=== PATIENT | male | born 1950 | race Caucasian/White ===

== ENCOUNTER 2017-06-18 14:56 | Observation (INO) | payer BC ==
--- NOTE | 2017-06-18 15:41 | EDM.PDOC ---
ED HPI GENERAL MEDICAL PROBLEM - General Chief Complaint: Chest Pain Stated Complaint: CHEST PAIN Time Seen by Provider: 06/18/17 15:35 Source of Information: Reports: Patient, Family () History Limitations: Reports: No Limitations - History of Present Illness INITIAL COMMENTS - FREE TEXT/NARRATIVE: PATIENT IS A 67-YEAR-OLD GENTLEMAN WHO PRESENTS TO EMERGENCY DEPARTMENT THIS AFTERNOON WITH A COMPLAINT OF PALPITATION AND CHEST PAIN. HIS STATES THAT HE DRANK A LARGE GLASS OF ICE COLD MILK AND IMMEDIATELY AFTER FELT HIS HEART RACING. HE DECIDED TO TAKE A SHOWER AND DISCOMFORT CONTINUED. PATIENT DECIDED TO PROCEED TO THE EMERGENCY DEPARTMENT DURING TRIP TO EMERGENCY DEPARTMENT. SYMPTOMS SUBSIDED AND PATIENT PRESENTED TO THE EMERGENCY DEPARTMENT ASYMPTOMATIC. PATIENT DENIES SHORTNESS OF BREATH, TRAUMA, FALL, NAUSEA, VOMITING, DIARRHEA, FEVER, OUT OF COUNTRY TRAVEL, HEADACHE, OR DIZZINESS. Onset: Today Onset Date: 06/18/17 Onset Time: 13:30 Location: Reports: Chest Quality: Reports: Burning Severity: Mild Improves with: Reports: Other (SPONTANEOUSLY) Context: Reports: Other (WHILE SEATED AT REST) Associated Symptoms: Reports: No Other Symptoms - Related Data Allergies Allergy/AdvReac Type Severity Reaction Status Date / Time No Known Drug Allergies Allergy NKDA Verified 06/18/17 15:03 Home Meds: Home Meds Aspirin/Calcium Carbonate/Mag [Aspirin Buffered 325 mg Tab] 650 mg PO DAILY [History] Bariatric Advantage Advanced Multi Ea Multivitamin 2 tab PO DAILY 11/13/15 [ History] Fish Oil/[place]-3 Fatty Acids [Fish Oil] 1 each PO DAILY 11/13/15 [History] Lisinopril/Hydrochlorothiazide [Lisinopril-Hctz 10-12.5 mg Tab] 1 each PO BID [History] Omeprazole [Prilosec] 20 mg PO DAILY 11/13/15 [History] Past Medical History - Infectious Disease History Infectious Disease History: Reports: Chicken Pox Social & Family History - Tobacco Use Smoking Status *Q: Never Smoker ED ROS GENERAL - Review of Systems Review Of Systems: ROS reveals no pertinent complaints other than HPI. Constitutional: Reports: No Symptoms HEENT: Reports: No Symptoms Respiratory: Reports: No Symptoms Cardiovascular: Reports: Chest Pain, Palpitations Endocrine: Reports: No Symptoms GI/Abdominal: Reports: No Symptoms : Reports: No Symptoms Musculoskeletal: Reports: No Symptoms Skin: Reports: No Symptoms Neurological: Reports: No Symptoms Psychiatric: Reports: No Symptoms Hematologic/Lymphatic: Reports: No Symptoms Immunologic: Reports: No Symptoms ED EXAM, GENERAL - Physical Exam Exam: See Below Exam Limited By: No Limitations General Appearance: Alert, WD/WN, No Apparent Distress Eye Exam: Bilateral Eye: Normal Inspection Nose: Normal Inspection, Normal Mucosa, No Blood Throat/Mouth: Normal Inspection, Normal Oropharynx, No Airway Compromise Head: Atraumatic, Normocephalic Neck: Normal Inspection Respiratory/Chest: No Respiratory Distress, Lungs Clear, Normal Breath Sounds, No Accessory Muscle Use, Chest Non-Tender Cardiovascular: Regular Rate, Rhythm, No Murmur GI/Abdominal: Normal Bowel Sounds, Soft, Non-Tender, No Organomegaly, No Distention, No Abnormal Bruit, No Mass Back Exam: Normal Inspection, Full Range of Motion Extremities: Normal Inspection, No Pedal Edema Neurological: Alert, Oriented, Normal Cognition Psychiatric: Normal Affect, Normal Mood Skin Exam: Warm, Dry, Intact, Normal Color, No Rash EKG INTERPRETATION EKG Date: 06/18/17 Time: 15:20 Rhythm: NSR Rate (Beats/Min): 81 [place]: Normal P-Wave: Present QRS: Normal ST-T: Normal QT: Normal Comparison: NA - No Prior EKG Course - Orders/Labs/Meds Orders: Active Orders 24 hr Category Date Time Status EKG Documentation Completion [RC] ASDIRECTED Care 06/18/17 15:09 Active CXR [Chest 1V Frontal] [CR] Stat Exams 06/18/17 15:09 Stop Req CXR [Chest 2V] [CR] Stat Exams 06/18/17 15:11 Ordered CMP [COMPREHENSIVE METABOLIC PN,CMP] [CHEM] Stat Lab 06/18/17 15:20 Received LIPASE [CHEM] Stat Lab 06/18/17 15:20 Received TROPONIN I [CHEM] Stat Lab 06/18/17 15:20 Received EKG 12 Lead [EK] Routine Ther 06/18/17 15:08 Ordered Labs: Laboratory Tests 06/18/17 Range/Units 15:20 WBC 10.0 (5.0-10.0) 10^3/uL RBC 5.54 (4.50-6.00) 10^6/uL Hgb 18.0 H (13.0-17.0) g/dL Hct 53.8 H (40.0-52.0) % MCV 97.3 H (82.0-92.0) fL MCH 32.5 H (27.0-31.0) pg MCHC 33.4 (32.0-36.0) g/dL RDW 13.2 (11.5-14.5) % Plt Count 275 (150-300) 10^3/uL MPV 7.4 (7.4-10.4) fL Neut % (Auto) 70.8 H (50.0-70.0) % Lymph % (Auto) 17.3 L (20.0-40.0) % [place] % (Auto) 8.7 H (2.0-8.0) % Eos % (Auto) 2.3 (1.0-3.0) % Baso % (Auto) 0.9 (0.0-1.0) % Neut # (Auto) 7.1 H (2.5-7.0) 10^3/uL Lymph # (Auto) 1.7 (1.0-4.0) 10^3/uL [place] # (Auto) 0.9 H (0.1-0.8) 10^3/uL Eos # (Auto) 0.2 (0.1-0.3) 10^3/uL Baso # (Auto) 0.1 (0.0-0.1) 10^3/uL - Radiology Interpretation Free Text/Narrative:: Chest x-ray shows no acute process. - Re-Assessments/Exams Free Text/Narrative Re-Assessment/Exam: 06/18/17 16:34 PATIENT AFEBRILE, NONTOXIC APPEARING, VITAL SIGNS STABLE, RESTING COMFORTABLY. CASE DISCUSSED WITH DR. ELIEZER DUMONT AND PATIENT WILL BE ADMITTED TO OBSERVATION. Departure - Departure Time of Disposition: 16:29 Disposition: Refer to Observation Condition: Fair Clinical Impression: Atypical chest pain, Troponin level elevated Referrals: Shira Ignacio PA-C [Primary Care Provider] - Forms: ED Department Discharge - My Orders Last 24 Hours: My Active Orders 06/18/17 15:08 EKG 12 Lead [EK] Routine 06/18/17 15:09 EKG Documentation Completion [RC] ASDIRECTED CXR [Chest 1V Frontal] [CR] Stat 06/18/17 15:11 CXR [Chest 2V] [CR] Stat 06/18/17 15:20 CMP [COMPREHENSIVE METABOLIC PN,CMP] [CHEM] Stat LIPASE [CHEM] Stat TROPONIN I [CHEM] Stat - Assessment/Plan Last 24 Hours: My Active Orders 06/18/17 15:08 EKG 12 Lead [EK] Routine 06/18/17 15:09 EKG Documentation Completion [RC] ASDIRECTED CXR [Chest 1V Frontal] [CR] Stat 06/18/17 15:11 CXR [Chest 2V] [CR] Stat 06/18/17 15:20 CMP [COMPREHENSIVE METABOLIC PN,CMP] [CHEM] Stat LIPASE [CHEM] Stat TROPONIN I [CHEM] Stat Assessment:: ATYPICAL CHEST PAIN, ELEVATED TROPONIN. Plan: ADMISSION FOR OBSERVATION.
[2017-06-18 16:01] LABS: CHLORIDE,CL 101 mmol/L (98-115); SODIUM,NA 138 mmol/L (136-145)
[2017-06-18] MEDS ORDERED: Sodium Chloride 0.9% 1,000 ML IV ONE (16:19)
[2017-06-18] MEDS ORDERED: Sodium Chloride 0.9% 1,000 ML ONE (16:20)
[2017-06-18] MEDS ORDERED: EPINEPHrine 1:10,000 1 MG/10 ML Syringe IVPUSH PRN (19:26)
[2017-06-18] MEDS ORDERED: Nitroglycerin 0.4 MG Tab.SL SL PRN (19:26)
[2017-06-18] MEDS ORDERED: Atropine 0.1 MG/ML 10 ML Syringe IVPUSH PRN (19:26)
[2017-06-18] MEDS ORDERED: Lidocaine 2% 100 MG/5 ML Syringe IVPUSH PRN (19:26)
[2017-06-18] MEDS ORDERED: Lisinopril 10 MG Tab PO SCH (21:00)
[2017-06-18] MEDS ORDERED: Hydrochlorothiazide 12.5 MG Cap PO SCH (21:00)
[2017-06-18] MEDS ORDERED: Heparin Sodium 5,000 Units/ML Vial IVPUSH ONE (22:13)
[2017-06-18] MEDS ORDERED: Heparin Sodium/D5W 25,000 UNITS/250 ML BAG IV SCH (22:15)
[2017-06-18 22:19] VITALS: BP 134/77
--- NOTE | 2017-06-18 22:51 | PCM.HP ---
H&P History of Present Illness - General Date of Service: 06/18/17 Admit Problem/Dx: Elevated troponin, atypical chest pain Source of Information: Patient, Old Records, Provider (Holden Ayon, ED provider) History Limitations: Reports: No Limitations - History of Present Illness Initial Comments - Free Text/Narative: Mr. Pineda reports taht around noon today, had an abnormal feeling in the center of his chest and "funny" heart feeling. He drank a large glass of cold milk and took a shower. He also took an additional 650mg of aspirin, in addition to the 650mg he has been taking daily at baseline because "aspirin is good for my heart." After telling his about his symptoms, he came into the [facility] ED for further evaluation. He states that he wasn't exerting himself at the time of the chest pain. He did feel mildly sweaty and had some difficulty breathing, but otherwise had no other associated symptoms. They resolved by the time he got to the ED. Evaluation there showed an elevated troponin at 0.09, but otherwise unremarkable work-up, including EKG and CXR. He denies prior similar episodes or exertional chest pain in the past. Denies any prior cardiac work-up. Of note, in the ED he had a brief vasovagal episode with insertion of the IV, which his and he state has happened in the past with lab draws and needles. Mid-Sternal Chest Pain Score (Numeric/FACES): 0 - Related Data Allergies/Adverse Reactions: Allergies Allergy/AdvReac Type Severity Reaction Status Date / Time No Known Drug Allergies Allergy NKDA Verified 06/18/17 17:06 Home Medications: Home Meds Aspirin/Calcium Carbonate/Mag [Aspirin Buffered 325 mg Tab] 650 mg PO DAILY [History] Bariatric Advantage Advanced Multi Ea Multivitamin 2 tab PO DAILY 11/13/15 [ History] Fish Oil/[place]-3 Fatty Acids [Fish Oil] 1 each PO DAILY 11/13/15 [History] Lisinopril/Hydrochlorothiazide [Lisinopril-Hctz 10-12.5 mg Tab] 1 each PO BID [History] Omeprazole [Prilosec] 20 mg PO DAILY 11/13/15 [History] Past Medical History HEENT History: Reports: Hard of Hearing Cardiovascular History: Reports: High Cholesterol (intolerant of statins), Hypertension Gastrointestinal History: Reports: GERD Genitourinary History: Reports: Renal Calculus Musculoskeletal History: Reports: Arthritis, Other (See Below) Other Musculoskeletal History: involuntary muscle movement, like a twitch, has had for years - Infectious Disease History Infectious Disease History: Reports: Chicken Pox - Past Surgical History HEENT Surgical History: Reports: None Cardiovascular Surgical History: Reports: None GI Surgical History: Reports: Colonoscopy Male Surgical History: Reports: None Musculoskeletal Surgical History: Reports: Other (See Below) Other Musculoskeletal Surgeries/Procedures:: Knee scope Social & Family History - Family History Family Medical History: Noncontributory Cardiac: Reports: Heart Failure - Tobacco Use Smoking Status *Q: Never Smoker Second Hand Smoke Exposure: No - Caffeine Use Caffeine Use: Reports: None - Recreational Drug Use Recreational Drug Use: No H&P Review of Systems - Review of Systems: Review Of Systems: See Below General: Denies: Fever, Chills, Fatigue, Diaphoresis HEENT: Denies: Dysphasia, Headaches, Sinus Congestion Pulmonary: Denies: Shortness of Breath, Wheezing, Pleuritic Chest Pain Cardiovascular: Denies: Chest Pain, Palpitations, Dyspnea on Exertion, Orthopnea , Edema Gastrointestinal: Denies: Abdominal Pain, Difficulty Swallowing, Nausea Musculoskeletal: Denies: Neck Pain, Shoulder Pain, Arm Pain Skin: Denies: Cyanosis, Rash, Wound Psychiatric: Denies: Confusion, Depression, Anxiety Neurological: Denies: Confusion, Dizziness, Headache, Numbness, Paresthesia Hematologic/Lymphatic: Denies: Anemia Exam - Exam Exam: See Below - Vital Signs Vital Signs: Last Vital Signs Temp 36.4 C 06/18/17 22:18 Pulse 65 06/18/17 22:18 Resp 20 06/18/17 22:18 BP 134/77 06/18/17 22:18 Pulse Ox 94 L 06/18/17 22:18 Weight: 88.677 kg - Exam Physical Exam Comments:: GENERAL: Elderly white male lying in hospital bed in no acute distress. HEENT: Normocephalic, atraumatic. Facial tic. Conjunctiva clear. Nares patent without discharge. Mucous membranes moist. NECK: Supple, no masses. CV: Regular rate and rhythm, no murmurs, rubs, or gallops. 2+ radial pulses. PULMONARY: Normal effort, clear to auscultation bilaterally, no wheezes, rales, or rhonchi. ABDOMEN: Positive bowel sounds, soft, nontender, nondistended. EXTREMITIES: No edema, cyanosis, or clubbing. MUSCULOSKELETAL: Moves all extremities well. NEUROLOGICAL: No obvious deficits. DERMATOLOGIC: No rashes or suspicious lesions in exposed areas. PSYCHIATRIC: Alert, interactive, appropriate affect. - Patient Data Lab Results Last 24 hrs: Laboratory Results - last 24 hr 06/18/17 Range/Units 21:00 Troponin I 0.13 H* (0.00-0.070) ng/mL Result Diagrams: 06/18/17 15:20 06/18/17 15:20 EKG INTERPRETATION Rhythm: NSR Rate (Beats/Min): 81 [place]: Normal P-Wave: Present QRS: Normal ST-T: Normal QT: Normal AL/PQ Interval: normal Comparison: NA - No Prior EKG *Q Meaningful Use (ADM) - VTE *Q VTE Criteria *Q: - Stroke *Q Stroke Criteria *Q: - AMI *Q AMI Criteria *Q: Problem List Initiated/Reviewed/Updated: Yes Orders Last 24hrs: Active Orders 24 hr Category Date Time Status Cardiac Monitoring [RC] 0700,1100,1500,1900,2300,0300 Care 06/18/17 17:25 Active Intake and Output [RC] 1400,2200,0600 Care 06/18/17 17:25 Active Oxygen Therapy [RC] PRN Care 06/18/17 17:25 Active Pulse Oximetry [RC] .PRN Care 06/18/17 17:25 Active Up With Assistance [RC] ASDIRECTED Care 06/18/17 17:25 Active Vital Signs [RC] 0300,0700,1100,1500,1900,2300 Care 06/18/17 17:25 Active Heart Healthy Diet [DIET] Diet 06/18/17 Dinner Active A1C [GLYCOSYLATED HEMOGLOBIN,HGBA1C] [CHEM] AM Lab 06/19/17 05:11 Ordered BASIC METABOLIC PANEL,BMP [CHEM] AM Lab 06/19/17 05:11 Ordered CBC WITH AUTO DIFF [HEME] AM Lab 06/19/17 05:11 Ordered LIPID PANEL [CHEM] AM Lab 06/19/17 05:11 Ordered MAGNESIUM [CHEM] AM Lab 06/19/17 05:11 Ordered TROPONIN I [CHEM] AM Lab 06/19/17 05:11 Ordered Aspirin [Halfprin] Med 06/19/17 08:00 Active 81 mg PO WITHBREAKFAST Atropine [Atropine 0.1 MG/ML] Med 06/18/17 19:26 Active 0 mg IVPUSH ASDIRECTED PRN EPINEPHrine [EPINEPHrine 1:10,000] Med 06/18/17 19:26 Active 1 mg IVPUSH ASDIRECTED PRN Heparin Sodium/D5W Med 06/18/17 22:15 Active 25,000 units in 250 ml IV TITRATE Hydrochlorothiazide Med 06/18/17 21:00 Active 12.5 mg PO BID Lidocaine 2% [Xylocaine 2%] Med 06/18/17 19:26 Active 0 mg IVPUSH ASDIRECTED PRN Lisinopril [Prinivil] Med 06/18/17 21:00 Active 10 mg PO BID Nitroglycerin [Nitrostat] Med 06/18/17 19:26 Active 0.4 mg SL ASDIRECTED PRN Omeprazole Med 06/19/17 07:30 Active 20 mg PO ACBREAKFAST Medication Orders Aspirin (Halfprin) 81 mg PO WITHBREAKFAST [facility] Atropine Sulfate (Atropine 0.1 Mg/Ml) 0 mg IVPUSH ASDIRECTED PRN PRN Reason: Heart Epinephrine HCl (Epinephrine 1:10,000) 1 mg IVPUSH ASDIRECTED PRN PRN Reason: Heart Hydrochlorothiazide (Hydrochlorothiazide) 12.5 mg PO BID [facility] Last Admin: 06/18/17 20:16 Dose: 12.5 mg Heparin Sodium/Dextrose () 25,000 units in 250 mls @ 10.641 mls/hr IV TITRATE [facility]; 12 UNITS/KG/HR PRN Reason: Protocol Lidocaine HCl (Xylocaine 2%) 0 mg IVPUSH ASDIRECTED PRN PRN Reason: Heart Lisinopril (Prinivil) 10 mg PO BID [facility] Last Admin: 06/18/17 20:16 Dose: 10 mg Nitroglycerin (Nitrostat) 0.4 mg SL ASDIRECTED PRN PRN Reason: Heart Omeprazole (Omeprazole) 20 mg PO ACBREAKFAST [facility] Assessment/Plan Comment:: Mr. Pineda is a 67yoM with a history notable for HTN, HLD, and pre-DMT2, but no personal cardiac history, who complained of an episode of atypical chest pain on 06/18/17 around noon associated with some palpitations. He has been taking ASA 650mg daily and took an additional 650mg, drank a glass of cold milk , and after telling his , they came into the [facility] ED when he complained of no chest pain or abnormal symptoms as they had resolved. Evaluation was notable for a troponin of 0.09 and otherwise unremarkable workup , including overall unremarkable VS, normal EKG, and normal CXR. He is admitted for observation and repeat cardiac enzymes. # Elevated troponin and atypical chest pain: Troponin mildly elevated at 0.09 in the setting of atypical chest pain episode around noon today. No prior cardiac history or work-up, but risk factors of HTN, HLD, pre-DMT2, and obesity. NOREEN score = 4. No other etiology to explain mildly elevated troponin, including any pulmonary symptoms or renal impairment. Monitor VS q4h and on continuous cardiorespiratory monitoring. Trend troponin. EKG and nitro if recurrent chest pain. Will at minimum require outpatient stress test for risk stratification. Add beta flavia and consider statin after further discussion given previous intolerance. Continue ASA 81mg daily. # HTN: Previously well controlled on lisinopril-HCTZ. Monitor closely. # HLD: Previous lipid panel with LDL 180 and cholesterol 250. Previous documentation states he is intolerant of statins. Repeat lipid panel tomorrow. Consider lower dose initiation. 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 Repeat A1c tomorrow. Consider metformin initiation. # Obesity: BMI 31. # Transaminitis, chronic: Previous documentation states it was thought to be due to statins, but continues to be elevated and no prior complete evaluation noted. Pursue as outpatient. Hospitalization details: # FEN: No IVF. Electrolytes normal. Cardiac diet. # Code status: FULL. # Emergency contact: . # Disposition: Admit to observation status. Anticipate discharge home following work-up and management as indicated.
--- NOTE | 2017-06-18 22:58 | PCM.DCSUM1 ---
Discharge Summary - Hospital Course Free Text/Narrative:: Date of admission: 06/18/17 Date of discharge: 06/18/17 Admission diagnoses: 1. Elevated troponin 2. Atypical chest pain 3. HTN 4. HLD 5. Pre-DMT2 6. Transaminitis, chronic Discharge diagnoses: 1. NSTEMI 2. HTN 3. HLD 4. Pre-DMT2 5. Transaminitis, chronic Consultations: Cardiology, [facility] Hospitalist, [facility] course: Mr. Pineda is a 67yoM with a history notable for HTN, HLD, and pre-DMT2, but no personal cardiac history, who complained of an episode of atypical chest pain on 06/18/17 around noon associated with some palpitations. He has been taking ASA 650mg daily and took an additional 650mg, drank a glass of cold milk , and after telling his , they came into the [facility] ED when he complained of no chest pain or abnormal symptoms as they had resolved. Evaluation was notable for a troponin of 0.09 and otherwise unremarkable workup , including overall unremarkable VS, normal EKG, and normal CXR. He was admitted for observation and repeat cardiac enzymes. Repeat troponin was elevated to 0.13. He continued to deny symptoms and was hemodynamically stable with sinus rhythm on cardiac monitoring. I discussed the patient's care with cardiology at [facility] who recommended initiation of heparin drip and transfer for further work-up for NSTEMI, likely to involve cardiac catheterization tomorrow. He was accepted for transfer by Dr. Brooks with the hospitalist team. Discussed with the patient and answered questions prior to transport. - Discharge Data Discharge Date: 06/18/17 Discharge Disposition: DC/Tfer to Acute Hospital 02 Condition: Fair - Patient Instructions Diet: NPO Diet, Other: after midnight - Discharge Plan Home Medications: Home Meds Aspirin/Calcium Carbonate/Mag [Aspirin Buffered 325 mg Tab] 650 mg PO DAILY [History] Bariatric Advantage Advanced Multi Ea Multivitamin 2 tab PO DAILY 11/13/15 [ History] Fish Oil/[place]-3 Fatty Acids [Fish Oil] 1 each PO DAILY 11/13/15 [History] Lisinopril/Hydrochlorothiazide [Lisinopril-Hctz 10-12.5 mg Tab] 1 each PO BID 04 /22/16 [History] Omeprazole [Prilosec] 20 mg PO DAILY 11/13/15 [History] Referrals: Shira Ignacio PA-C [Primary Care Provider] - - Discharge Summary/Plan Comment DC Time >30 min.: Yes - General Info Admission Dx/Problem (Free Text: Mr. Brooks currently states he has no complaints. The episode he experienced earlier of chest pressure and palpitations has not recurred. He denies any chest pain, palpitations, shortness of breath, numbness, tingling, abdominal pain, diaphoresis, or other symptoms. - Patient Data Vitals - Most Recent: Last Vital Signs Temp 36.4 C 06/18/17 22:18 Pulse 65 06/18/17 22:18 Resp 20 06/18/17 22:18 BP 134/77 06/18/17 22:18 Pulse Ox 94 L 06/18/17 22:18 Weight - Most Recent: 88.677 kg I&O - Last 24 hours: Intake & Output 06/18/17 06/18/17 06/18/17 06:59 14:59 22:59 Intake Total 300 Balance 300 Lab Results - Last 24 hrs: Laboratory Results - last 24 hr 06/18/17 Range/Units 21:00 Troponin I 0.13 H* (0.00-0.070) ng/mL Med Orders - Current: Current Medications Aspirin (Halfprin) 81 mg PO WITHBREAKFAST [facility] Atropine Sulfate (Atropine 0.1 Mg/Ml) 0 mg IVPUSH ASDIRECTED PRN PRN Reason: Heart Epinephrine HCl (Epinephrine 1:10,000) 1 mg IVPUSH ASDIRECTED PRN PRN Reason: Heart Hydrochlorothiazide (Hydrochlorothiazide) 12.5 mg PO BID ON LICENSE OF [facility] Last Admin: 06/18/17 20:16 Dose: 12.5 mg Heparin Sodium/Dextrose () 25,000 units in 250 mls @ 10.641 mls/hr IV TITRATE [facility]; 12 UNITS/KG/HR PRN Reason: Protocol Lidocaine HCl (Xylocaine 2%) 0 mg IVPUSH ASDIRECTED PRN PRN Reason: Heart Lisinopril (Prinivil) 10 mg PO BID ON LICENSE OF [facility] Last Admin: 06/18/17 20:16 Dose: 10 mg Nitroglycerin (Nitrostat) 0.4 mg SL ASDIRECTED PRN PRN Reason: Heart Omeprazole (Omeprazole) 20 mg PO ACBREAKFAST [facility] Discontinued Medications Heparin Sodium (Porcine) (Heparin Sodium) 5,000 units IVPUSH .BOLUS ONE PRN Reason: Protocol Stop: 06/18/17 22:14 Sodium Chloride (Normal Saline) 1,000 mls @ 999 mls/hr IV .BOLUS ONE Stop: 06/18/17 17:19 Last Admin: 06/18/17 16:05 Dose: 999 mls/hr Sodium Chloride (Normal Saline) Confirm Administered Dose 1,000 mls @ as directed .ROUTE .STK-MED ONE Stop: 06/18/17 16:21 Last Admin: 06/18/17 16:44 Dose: Not Given - Exam Physical Findings Comments:: GENERAL: Elderly white male lying in hospital bed in no acute distress. HEENT: Normocephalic, atraumatic. Facial tic. Conjunctiva clear. Nares patent without discharge. Mucous membranes moist. NECK: Supple, no masses. CV: Regular rate and rhythm, no murmurs, rubs, or gallops. 2+ radial pulses. PULMONARY: Normal effort, clear to auscultation bilaterally, no wheezes, rales, or rhonchi. ABDOMEN: Positive bowel sounds, soft, nontender, nondistended. EXTREMITIES: No edema, cyanosis, or clubbing. MUSCULOSKELETAL: Moves all extremities well. NEUROLOGICAL: No obvious deficits. DERMATOLOGIC: No rashes or suspicious lesions in exposed areas. PSYCHIATRIC: Alert, interactive, appropriate affect. *Q Meaningful Use (DIS) - VTE *Q VTE Criteria *Q: - Stroke *Q Stroke Criteria *Q: - AMI *Q AMI Criteria *Q:
[2017-06-19] MEDS ORDERED: Omeprazole 20 MG Cap.CR PO SCH (07:30)
[2017-06-19] MEDS ORDERED: Aspirin 81 MG Tab.EC PO SCH (08:00)
== END 2017-06-18 23:30 ==
LOC: KA.ED 14:56 → KA.MS 16:44
PROVIDERS: ADMIT Physician Assistant Surgical; ATTEND Family Medicine
DX: I21.4 Non-ST elevation (NSTEMI) myocardial infarction (principal); I10 Essential (primary) hypertension; E78.5 Hyperlipidemia, unspecified; R73.03 Prediabetes; R74.0 Nonspecific elevation of levels of transaminase and lactic acid dehydrogenase [LDH]; K21.9 Gastro-esophageal reflux disease without esophagitis; M19.90 Unspecified osteoarthritis, unspecified site; Z87.442 Personal history of urinary calculi; E66.9 Obesity, unspecified; Z79.82 Long term (current) use of aspirin; Z79.899 Other long term (current) drug therapy; Z68.31 Body mass index [BMI] 31.0-31.9, adult
CPT/HCPCS: 80053; 83690; 84484; 85025; 93005; 96374; 99285; A9270; G0378; J1644; J7030; 71010

== ENCOUNTER 2017-09-04 22:03 | Observation (INO) | payer BC ==
--- NOTE | 2017-09-04 22:16 | EDM.PDOC ---
ED HPI GENERAL MEDICAL PROBLEM - General Chief Complaint: Chest Pain Stated Complaint: chest pain Time Seen by Provider: 09/04/17 22:03 Source of Information: Reports: Patient History Limitations: Reports: No Limitations - History of Present Illness INITIAL COMMENTS - FREE TEXT/NARRATIVE: 67 YO WM presents to ER complaining of 1 hour history of chest pain with palpitations. Pt reports history of atrial fibrillation 05/2017 with normal diagnostic cardiac cath 05/2017. Pt unsure what medication he was put on after hospitalization. Pt reports symptoms started suddenly tonight with associated shortness of breath and mild dizziness. Onset: Sudden Duration: Hour(s): (1) Location: Reports: Chest Severity: Mild Improves with: Reports: None Worsens with: Reports: None Associated Symptoms: Reports: Chest Pain, Shortness of Breath. Denies: Diaphoresis, Nausea/Vomiting, Syncope - Related Data Allergies Allergy/AdvReac Type Severity Reaction Status Date / Time No Known Drug Allergies Allergy NKDA Verified 09/04/17 22:32 Home Meds: Home Meds Bariatric Advantage Advanced Multi Ea Multivitamin 2 tab PO DAILY 11/13/15 [ History] Fish Oil/[place]-3 Fatty Acids [Fish Oil] 2 each PO BID 11/13/15 [History] Lisinopril/Hydrochlorothiazide [Lisinopril-Hctz 10-12.5 mg Tab] 1 each PO BID [History] Omeprazole [Prilosec] 20 mg PO DAILY 11/13/15 [History] Aspirin [Adult Low Dose Aspirin EC] 81 mg PO DAILY 09/04/17 [History] Metoprolol Tartrate [Metoprolol Tartrate] 12.5 mg PO BID 09/04/17 [History] Nitroglycerin [Nitroglycerin] 1 tab PO Q5M PRN 09/04/17 [History] Rosuvastatin Calcium [Rosuvastatin Calcium] 10 mg PO DAILY 09/04/17 [History] Past Medical History HEENT History: Reports: Hard of Hearing Cardiovascular History: Reports: High Cholesterol (intolerant of statins), Hypertension Gastrointestinal History: Reports: GERD Genitourinary History: Reports: Renal Calculus Musculoskeletal History: Reports: Arthritis, Other (See Below) Other Musculoskeletal History: involuntary muscle movement, like a twitch, has had for years - Infectious Disease History Infectious Disease History: Reports: Chicken Pox - Past Surgical History HEENT Surgical History: Reports: None Cardiovascular Surgical History: Reports: None GI Surgical History: Reports: Colonoscopy Male Surgical History: Reports: None Musculoskeletal Surgical History: Reports: Other (See Below) Other Musculoskeletal Surgeries/Procedures:: Knee scope Social & Family History - Family History Family Medical History: Noncontributory Cardiac: Reports: Heart Failure - Tobacco Use Smoking Status *Q: Never Smoker Second Hand Smoke Exposure: No - Caffeine Use Caffeine Use: Reports: None - Recreational Drug Use Recreational Drug Use: No ED ROS GENERAL - Review of Systems Review Of Systems: See Below Constitutional: Reports: No Symptoms HEENT: Reports: No Symptoms Respiratory: Reports: Shortness of Breath Cardiovascular: Reports: Chest Pain Endocrine: Reports: No Symptoms GI/Abdominal: Reports: No Symptoms : Reports: No Symptoms Musculoskeletal: Reports: No Symptoms Skin: Reports: No Symptoms Neurological: Reports: No Symptoms Psychiatric: Reports: No Symptoms Hematologic/Lymphatic: Reports: No Symptoms Immunologic: Reports: No Symptoms ED EXAM, GENERAL - Physical Exam Exam: See Below Exam Limited By: No Limitations General Appearance: Alert, WD/WN, No Apparent Distress Head: Atraumatic, Normocephalic Neck: Normal Inspection, Supple, Non-Tender, Full Range of Motion Respiratory/Chest: No Respiratory Distress, Lungs Clear, Normal Breath Sounds, No Accessory Muscle Use, Chest Non-Tender Cardiovascular: Normal Peripheral Pulses, No Edema, No Gallop, No JVD, No Murmur , No Rub, Tachycardia, Irregularly Irregular GI/Abdominal: Normal Bowel Sounds, Soft, Non-Tender, No Organomegaly, No Distention, No Abnormal Bruit, No Mass Back Exam: Normal Inspection, Full Range of Motion, NT Extremities: Normal Inspection, Normal Range of Motion, Non-Tender, Normal Capillary Refill, No Pedal Edema Neurological: Alert, Oriented, CN II-XII Intact, Normal Cognition, Normal Gait, Normal Reflexes, No Motor/Sensory Deficits Psychiatric: Normal Affect, Normal Mood Skin Exam: Warm, Dry, Intact, Normal Color, No Rash Lymphatic: No Adenopathy EKG INTERPRETATION EKG Date: 09/04/17 Time: 22:12 Rhythm: A-Fib Rate (Beats/Min): 143 [place]: Normal P-Wave: Absent QRS: Normal ST-T: Normal QT: Normal Comparison: NA - No Prior EKG Course - Vital Signs Last Recorded V/S: Last Vital Signs Temp 36.2 C 09/04/17 23:44 Pulse 61 09/04/17 23:44 Resp 16 09/04/17 23:44 BP 110/69 09/04/17 23:44 Pulse Ox 94 L 09/04/17 23:44 - Orders/Labs/Meds Orders: Active Orders 24 hr Category Date Time Status Patient Status Manage Transfer [TRANSFER] Routine ADT 09/04/17 23:42 Ordered Patient Status [ADT] Routine ADT 09/04/17 23:43 Ordered Bedrest Bathroom Privileges [RC] ASDIRECTED Care 09/04/17 23:43 Active Blood Glucose Check, Bedside [RC] WITHMEALSANDBED Care 09/04/17 23:43 Active Cardiac Monitoring [RC] . DIRECTED Care 09/04/17 22:17 Active Cardiac Monitoring [RC] CONTINUOUS Care 09/04/17 23:44 Active EKG Documentation Completion [RC] ASDIRECTED Care 09/04/17 22:17 Active Oxygen Therapy [RC] PRN Care 09/04/17 23:43 Active Oxygen Therapy, ED [RC] ASDIRECTED Care 09/04/17 22:17 Active Peripheral IV Care [RC] . DIRECTED Care 09/04/17 22:17 Active Peripheral IV Care [RC] . DIRECTED Care 09/04/17 23:45 Active Pulse Oximetry [RC] PRN Care 09/04/17 23:44 Active VTE/DVT Education [RC] PER UNIT ROUTINE Care 09/04/17 23:43 Active Vital Signs [RC] Q4H Care 09/04/17 23:43 Active [employer] Diet [DIET] Diet 09/05/17 Breakfast Active Chest 1V Frontal [CR] Stat Exams 09/04/17 22:17 Taken BASIC METABOLIC PANEL,BMP [CHEM] AM Lab 09/05/17 05:11 Ordered CBC WITH AUTO DIFF [HEME] AM Lab 09/05/17 05:11 Ordered CKMB [CHEM] AM Lab 09/05/17 05:11 Ordered MAGNESIUM [CHEM] AM Lab 09/05/17 05:11 Ordered TROPONIN I [CHEM] AM Lab 09/05/17 05:11 Ordered Nitroglycerin [Nitro-Bid 2%] Med 09/04/17 23:45 Active 1 gm TOP Q6H PRN Sodium Chloride 0.9% [Normal Saline] 1,000 ml Med 09/04/17 23:45 Active IV ASDIRECTED Sodium Chloride 0.9% [Syrex Flush] Med 09/04/17 22:17 Active 5 ml FLUSH Q8HR PRN Sodium Chloride 0.9% [Syrex Flush] Med 09/04/17 23:43 Active 5 ml FLUSH Q8HR PRN Peripheral IV Insertion Adult [OM.PC] Routine Oth 09/04/17 22:17 Ordered Peripheral IV Insertion Adult [OM.PC] Routine Oth 09/04/17 23:43 Ordered Resuscitation Status Routine Resus Stat 09/04/17 23:43 Ordered EKG 12 Lead [EK] Routine Ther 09/04/17 22:17 Ordered Medication Orders Sodium Chloride (Normal Saline) 1,000 mls @ 125 mls/hr IV ASDIRECTED KYM Nitroglycerin (Nitro-Bid 2%) 1 gm TOP Q6H PRN PRN Reason: Chest Pain Sodium Chloride (Syrex Flush) 5 ml FLUSH Q8HR PRN PRN Reason: Keep Vein Open Last Admin: 09/04/17 22:48 Dose: 5 ml Sodium Chloride (Syrex Flush) 5 ml FLUSH Q8HR PRN PRN Reason: Keep Vein Open Labs: Laboratory Tests 09/04/17 09/04/17 09/04/17 Range/Units 22:40 22:40 22:40 WBC 10.8 H (5.0-10.0) 10^3/uL RBC 4.92 (4.50-6.00) 10^6/uL Hgb 16.0 D (13.0-17.0) g/dL Hct 48.1 (40.0-52.0) % MCV 97.9 H (82.0-92.0) fL MCH 32.5 H (27.0-31.0) pg MCHC 33.2 (32.0-36.0) g/dL RDW 13.2 (11.5-14.5) % Plt Count 257 (150-300) 10^3/uL MPV 8.1 (7.4-10.4) fL Neut % (Auto) 64.5 (50.0-70.0) % Lymph % (Auto) 21.8 (20.0-40.0) % Slope % (Auto) 10.0 H (2.0-8.0) % Eos % (Auto) 2.8 (1.0-3.0) % Baso % (Auto) 0.9 (0.0-1.0) % Neut # (Auto) 6.9 (2.5-7.0) 10^3/uL Lymph # (Auto) 2.4 (1.0-4.0) 10^3/uL Slope # (Auto) 1.1 H (0.1-0.8) 10^3/uL Eos # (Auto) 0.3 (0.1-0.3) 10^3/uL Baso # (Auto) 0.1 (0.0-0.1) 10^3/uL PT 9.2 (8.9-11.4) SEC INR 0.9 (0.9-1.1) APTT 21.6 (20.8-31.2) SEC Sodium 143 (136-145) mmol/L Potassium 3.6 (3.3-5.3) mmol/L Chloride 103 (98-115) mmol/L Carbon Dioxide 27.4 (21.0-32.0) mmol/L BUN 23 (6-25) mg/dL Creatinine 1.20 H (0.51-1.17) mg/dL Est Cr Clr Drug Dosing 57.79 mL/min Estimated GFR (MDRD) > 60 mL/min Glucose 238 H (70-110) mg/dL Calcium 8.9 (8.7-10.3) mg/dL Total Bilirubin 0.3 (0.2-1.0) mg/dL AST 37 (15-37) U/L ALT 73 (12-78) U/L Alkaline Phosphatase 80 (46-116) IU/L Creatine Kinase 423 H* (26-276) U/L CK-MB (CK-2) 5.90 H* (0.00-4.30) ng/mL Troponin I 0.06 (0.00-0.070) ng/mL Total Protein 7.5 (6.4-8.2) g/dL Albumin 4.17 (3.00-4.80) g/dL Meds: Medications Generic Name Dose Route Start Last Admin Trade Name Freq PRN Reason Stop Dose Admin Sodium Chloride 1,000 mls @ 125 mls/hr 09/04/17 23:45 Normal Saline IV ASDIRECTED KYM Nitroglycerin 1 gm 09/04/17 23:45 Nitro-Bid 2% TOP Q6H PRN Chest Pain Sodium Chloride 5 ml 09/04/17 22:17 09/04/17 22:48 Syrex Flush FLUSH 5 ml Q8HR PRN Administration Keep Vein Open Sodium Chloride 5 ml 09/04/17 23:43 Syrex Flush FLUSH Q8HR PRN Keep Vein Open Discontinued Medications Generic Name Dose Route Start Last Admin Trade Name Freq PRN Reason Stop Dose Admin Aspirin 324 mg 09/04/17 23:45 Aspirin PO 09/04/17 23:46 ONETIME ONE Diltiazem HCl 20 mg 09/04/17 22:17 Diltiazem IVPUSH 09/04/17 22:18 ONETIME ONE - Radiology Interpretation Free Text/Narrative:: CXR- NAD - Re-Assessments/Exams Free Text/Narrative Re-Assessment/Exam: 09/04/17 22:23 22:23- pt spontaneously converted back to NSR @72 BPM. Departure - Departure Time of Disposition: 23:40 Disposition: Refer to Observation Condition: Fair Clinical Impression: Hyperglycemia, Elevated CPK Chest pain Qualifiers: Chest pain type: unspecified Qualified Code(s): R07.9 - Chest pain, unspecified Atrial fibrillation Qualifiers: Atrial fibrillation type: paroxysmal Qualified Code(s): I48.0 - Paroxysmal atrial fibrillation Forms: ED Department Discharge - My Orders Last 24 Hours: My Active Orders 09/04/17 22:17 Cardiac Monitoring [RC] . DIRECTED EKG Documentation Completion [RC] ASDIRECTED Oxygen Therapy, ED [RC] ASDIRECTED Peripheral IV Care [RC] . DIRECTED Chest 1V Frontal [CR] Stat Sodium Chloride 0.9% [Syrex Flush] 5 ml FLUSH Q8HR PRN Peripheral IV Insertion Adult [OM.PC] Routine EKG 12 Lead [EK] Routine 09/04/17 23:42 Patient Status Manage Transfer [TRANSFER] Routine 09/04/17 23:43 Patient Status [ADT] Routine Bedrest Bathroom Privileges [RC] ASDIRECTED Blood Glucose Check, Bedside [RC] WITHMEALSANDBED Oxygen Therapy [RC] PRN VTE/DVT Education [RC] PER UNIT ROUTINE Vital Signs [RC] Q4H Sodium Chloride 0.9% [Syrex Flush] 5 ml FLUSH Q8HR PRN Peripheral IV Insertion Adult [OM.PC] Routine Resuscitation Status Routine 09/04/17 23:44 Cardiac Monitoring [RC] CONTINUOUS Pulse Oximetry [RC] PRN 09/04/17 23:45 Peripheral IV Care [RC] . DIRECTED Nitroglycerin [Nitro-Bid 2%] 1 gm TOP Q6H PRN Sodium Chloride 0.9% [Normal Saline] 1,000 ml IV ASDIRECTED 09/05/17 05:11 BASIC METABOLIC PANEL,BMP [CHEM] AM CBC WITH AUTO DIFF [HEME] AM CKMB [CHEM] AM MAGNESIUM [CHEM] AM TROPONIN I [CHEM] AM 09/05/17 Breakfast [employer] Diet [DIET] - Assessment/Plan Last 24 Hours: My Active Orders 09/04/17 22:17 Cardiac Monitoring [RC] . DIRECTED EKG Documentation Completion [RC] ASDIRECTED Oxygen Therapy, ED [RC] ASDIRECTED Peripheral IV Care [RC] . DIRECTED Chest 1V Frontal [CR] Stat Sodium Chloride 0.9% [Syrex Flush] 5 ml FLUSH Q8HR PRN Peripheral IV Insertion Adult [OM.PC] Routine EKG 12 Lead [EK] Routine 09/04/17 23:42 Patient Status Manage Transfer [TRANSFER] Routine 09/04/17 23:43 Patient Status [ADT] Routine Bedrest Bathroom Privileges [RC] ASDIRECTED Blood Glucose Check, Bedside [RC] WITHMEALSANDBED Oxygen Therapy [RC] PRN VTE/DVT Education [RC] PER UNIT ROUTINE Vital Signs [RC] Q4H Sodium Chloride 0.9% [Syrex Flush] 5 ml FLUSH Q8HR PRN Peripheral IV Insertion Adult [OM.PC] Routine Resuscitation Status Routine 09/04/17 23:44 Cardiac Monitoring [RC] CONTINUOUS Pulse Oximetry [RC] PRN 09/04/17 23:45 Peripheral IV Care [RC] . DIRECTED Nitroglycerin [Nitro-Bid 2%] 1 gm TOP Q6H PRN Sodium Chloride 0.9% [Normal Saline] 1,000 ml IV ASDIRECTED 09/05/17 05:11 BASIC METABOLIC PANEL,BMP [CHEM] AM CBC WITH AUTO DIFF [HEME] AM CKMB [CHEM] AM MAGNESIUM [CHEM] AM TROPONIN I [CHEM] AM 09/05/17 Breakfast [employer] Diet [DIET] Assessment:: 1. Atrial Fibrillation with RVR- spontaneously converted 2. Chest pain Plan: 1, Admit for 23 hour obs- Holden Mckeon 2. NS 125cc/hr 3. ASA/Nitro 4. oxygen 5. repeat labs in am
[2017-09-04] MEDS ORDERED: Diltiazem 25 MG/5 ML SDV IVPUSH ONE (22:17)
[2017-09-04] MEDS: Sodium Chloride 0.9% 5 ML Syringe FLUSH PRN (22:48)
[2017-09-04 23:34] LABS: CHLORIDE,CL 103 mmol/L (98-115); SODIUM,NA 143 mmol/L (136-145)
[2017-09-04] MEDS ORDERED: Sodium Chloride 0.9% 5 ML Syringe FLUSH PRN (23:43)
[2017-09-04] MEDS ORDERED: Nitroglycerin 2% Oint 1 GM UD Packet TOP PRN (23:45)
[2017-09-04] MEDS ORDERED: Aspirin 81 MG Tab.Chew PO ONE (23:45)
[2017-09-04] MEDS ORDERED: Sodium Chloride 0.9% 1,000 ML IV SCH (23:45)
[2017-09-05] MEDS: Sodium Chloride 0.9% 5 ML Syringe FLUSH PRN (00:27)
[2017-09-05] MEDS ORDERED: Nitroglycerin 0.4 MG Tab.SL SL PRN (01:10)
[2017-09-05] MEDS ORDERED: EPINEPHrine 1:10,000 1 MG/10 ML Syringe IVPUSH PRN (01:10)
[2017-09-05] MEDS ORDERED: Lidocaine 2% 100 MG/5 ML Syringe IVPUSH PRN (01:10)
[2017-09-05] MEDS ORDERED: Atropine 0.1 MG/ML 10 ML Syringe IVPUSH PRN (01:10)
[2017-09-05 07:24] LABS: CHLORIDE,CL 106 mmol/L (98-115); SODIUM,NA 144 mmol/L (136-145)
[2017-09-05] MEDS: Rosuvastatin 10 MG Tab PO SCH (08:17)
[2017-09-05] MEDS: Fish Oil/Omega-3 Fatty Acids 1 Gm Cap PO SCH ×2 (08:17→20:27)
[2017-09-05] MEDS: Aspirin 81 MG Tab.EC PO SCH (08:17)
--- NOTE | 2017-09-05 08:56 | PCM.HP ---
H&P History of Present Illness - General Date of Service: 09/05/17 Source of Information: Patient, Old Records, Provider History Limitations: Reports: No Limitations - History of Present Illness Initial Comments - Free Text/Narative: This 67-year-old male was admitted into observation last night chest pains rule out OR and atrial fibrillation with RVR. He presented to the ED with chest pains and palpitations. He stated he was standing up drinking some juice at home when he had a similar "funny Feeling" in his chest, SOB with mild dizziness however no diaphoresis, radiating pain to his jaw or extremities or back or any GI upset. He had similar symptoms back in May 2017 subsequently transferred to a tertiary care center in [place] underwent cardiac catheterization d/t elevated cardiac enzymes and was diagnosed with nonobstructive coronary artery disease. Lance was started on Aspirin 81 mg, Crestor 10 mg, and Lopressor 12.5 mg bid. Patient's symptoms resolved and he was discharged in stable condition on 06/19/17 and was instructed to undergo cardiac rehabilitation however he has not initiated this as he feels he gets enough exercise and cardiac rehabilitation in his own words at work. Although he reported to the ED provider on admission last night that he has history of atrial fibrillation in May 2017, there is no documentation that he has ever been atrial fibrillation nor has he ever been started on anticoagulation in the past. - Related Data Allergies/Adverse Reactions: Allergies Allergy/AdvReac Type Severity Reaction Status Date / Time No Known Drug Allergies Allergy NKDA Verified 09/04/17 22:32 Home Medications: Home Meds Bariatric Advantage Advanced Multi Ea Multivitamin 2 tab PO DAILY 11/13/15 [ History] Fish Oil/Home-3 Fatty Acids [Fish Oil] 2 each PO BID 11/13/15 [History] Lisinopril/Hydrochlorothiazide [Lisinopril-Hctz 10-12.5 mg Tab] 1 each PO BID [History] Omeprazole [Prilosec] 20 mg PO DAILY 11/13/15 [History] Aspirin [Adult Low Dose Aspirin EC] 81 mg PO DAILY 09/04/17 [History] Metoprolol Tartrate [Metoprolol Tartrate] 12.5 mg PO BID 09/04/17 [History] Nitroglycerin [Nitroglycerin] 1 tab PO Q5M PRN 09/04/17 [History] Rosuvastatin Calcium [Rosuvastatin Calcium] 10 mg PO DAILY 09/04/17 [History] Past Medical History HEENT History: Reports: Hard of Hearing Cardiovascular History: Reports: High Cholesterol, Hypertension Other Cardiovascular History: episode of a-fib today Gastrointestinal History: Reports: GERD Genitourinary History: Reports: Renal Calculus Musculoskeletal History: Reports: Arthritis, Other (See Below) Other Musculoskeletal History: involuntary muscle movement, like a twitch, has had for years - Infectious Disease History Infectious Disease History: Reports: Chicken Pox - Past Surgical History HEENT Surgical History: Reports: None Cardiovascular Surgical History: Reports: None GI Surgical History: Reports: Colonoscopy Male Surgical History: Reports: None Musculoskeletal Surgical History: Reports: Other (See Below) Other Musculoskeletal Surgeries/Procedures:: Knee scope Social & Family History - Family History Cardiac: Reports: Heart Failure Respiratory: Reports: None GI: Reports: None : Reports: None OBGYN: Reports: None Musculoskeletal: Reports: None Neurological: Reports: None Psychiatric: Reports: Depression Other Psychiatric Family History: Sister with depression Hematologic: Reports: None Immunologic: Reports: None Dermatologic: Reports: None Oncologic: Reports: None - Tobacco Use Smoking Status *Q: Never Smoker Second Hand Smoke Exposure: No - Caffeine Use Caffeine Use: Reports: None - Recreational Drug Use Recreational Drug Use: No H&P Review of Systems - Review of Systems: Review Of Systems: See Below General: Reports: No Symptoms HEENT: Reports: No Symptoms Pulmonary: Reports: No Symptoms Cardiovascular: Denies: Chest Pain (no chest pains after arriving to floor ) Gastrointestinal: Reports: No Symptoms Genitourinary: Reports: No Symptoms Musculoskeletal: Reports: No Symptoms Skin: Reports: No Symptoms Psychiatric: Reports: No Symptoms Neurological: Reports: No Symptoms Hematologic/Lymphatic: Reports: No Symptoms Immunologic: Reports: No Symptoms Exam - Exam Exam: See Below - Vital Signs Vital Signs: Last Vital Signs Temp 98.4 F 09/05/17 06:16 Pulse 48 L 09/05/17 06:16 Resp 18 09/05/17 06:16 BP 133/82 09/05/17 06:16 Pulse Ox 93 L 09/05/17 06:16 Weight: 197 lb - Exam Quality Assessment: No: Supplemental Oxygen General: Alert, Oriented, 4 HEENT: Conjunctiva Clear, Mucosa Moist & [place], Pupils Equal Neck: Supple, Trachea Midline, 2 Lungs: Clear to Auscultation, Normal Respiratory Effort Cardiovascular: Normal S1, Normal S2, Bradycardia. No: Tachycardia, Systolic Murmur, Gallop/S3 GI/Abdominal Exam: Normal Bowel Sounds, Soft, Non-Tender, No Organomegaly, No Distention, No Abnormal Bruit, No Mass, Pelvis Stable (Male) Exam: Deferred Rectal (Males) Exam: Deferred Back Exam: No: CVA Tenderness (L) Extremities: No Pedal Edema Peripheral Pulses: 1+: Radial (R), 2+: Radial (L) Skin: Warm, Dry, Intact Neurological: Cranial Nerves Intact, Reflexes Equal Bilateral Neuro Extensive - Mental Status: Alert, Oriented x3, Normal Mood/Affect, Normal Cognition Neuro Extensive - Motor, Sensory, Reflexes: CN II-XII Intact Psychiatric: Alert, Normal Affect, Normal Mood - Patient Data Lab Results Last 24 hrs: Laboratory Results - last 24 hr 09/05/17 09/05/17 09/05/17 Range/Units 06:10 06:10 06:13 WBC 7.7 (5.0-10.0) 10^3/uL RBC 4.67 (4.50-6.00) 10^6/uL Hgb 15.2 (13.0-17.0) g/dL Hct 45.8 (40.0-52.0) % MCV 98.0 H (82.0-92.0) fL MCH 32.6 H (27.0-31.0) pg MCHC 33.2 (32.0-36.0) g/dL RDW 13.0 (11.5-14.5) % Plt Count 213 (150-300) 10^3/uL MPV 7.8 (7.4-10.4) fL Neut % (Auto) 58.7 (50.0-70.0) % Lymph % (Auto) 25.1 (20.0-40.0) % [place] % (Auto) 11.2 H (2.0-8.0) % Eos % (Auto) 4.3 H (1.0-3.0) % Baso % (Auto) 0.7 (0.0-1.0) % Neut # (Auto) 4.5 (2.5-7.0) 10^3/uL Lymph # (Auto) 1.9 (1.0-4.0) 10^3/uL [place] # (Auto) 0.9 H (0.1-0.8) 10^3/uL Eos # (Auto) 0.3 (0.1-0.3) 10^3/uL Baso # (Auto) 0.1 (0.0-0.1) 10^3/uL Sodium 144 (136-145) mmol/L Potassium 4.1 (3.3-5.3) mmol/L Chloride 106 (98-115) mmol/L Carbon Dioxide 27.4 (21.0-32.0) mmol/L BUN 22 (6-25) mg/dL Creatinine 1.00 (0.51-1.17) mg/dL Est Cr Clr Drug Dosing 69.35 mL/min Estimated GFR (MDRD) > 60 mL/min Glucose 139 H (70-110) mg/dL POC Glucose 128 H (74-106) mg/dl Calcium 8.7 (8.7-10.3) mg/dL Magnesium 1.9 (1.8-2.4) mg/dL CK-MB (CK-2) 4.40 H* (0.00-4.30) ng/mL Troponin I 0.07 (0.00-0.070) ng/mL Result Diagrams: 09/05/17 06:10 09/05/17 06:10 EKG INTERPRETATION Rhythm: NSR [place]: Normal P-Wave: Present QRS: Normal ST-T: Other QT: Normal Comparison: Change From Previous EKG (EKG May 2017 sinus bradycardia) *Q Meaningful Use (ADM) - VTE *Q VTE Criteria *Q: - Stroke *Q Stroke Criteria *Q: - AMI *Q AMI Criteria *Q: Problem List Initiated/Reviewed/Updated: Yes Orders Last 24hrs: Active Orders 24 hr Category Date Time Status Atropine [Atropine 0.1 MG/ML] Med 09/05/17 01:10 Active 0 mg IVPUSH ASDIRECTED PRN EPINEPHrine [EPINEPHrine 1:10,000] Med 09/05/17 01:10 Active 1 mg IVPUSH ASDIRECTED PRN Hydrochlorothiazide Med 09/05/17 09:00 Active 12.5 mg PO BID Lidocaine 2% [Xylocaine 2%] Med 09/05/17 01:10 Active 0 mg IVPUSH ASDIRECTED PRN Nitroglycerin [Nitrostat] Med 09/05/17 01:10 Active 0.4 mg SL ASDIRECTED PRN Medication Orders Aspirin (Halfprin) 81 mg PO DAILY [facility] Last Admin: 09/05/17 08:17 Dose: 81 mg Atropine Sulfate (Atropine 0.1 Mg/Ml) 0 mg IVPUSH ASDIRECTED PRN PRN Reason: Heart Epinephrine HCl (Epinephrine 1:10,000) 1 mg IVPUSH ASDIRECTED PRN PRN Reason: Heart Fish Oil (Fish Oil) 2 gm PO BID [facility] Last Admin: 09/05/17 08:17 Dose: 2 gm Hydrochlorothiazide (Hydrochlorothiazide) 12.5 mg PO BID [facility] Sodium Chloride (Normal Saline) 1,000 mls @ 125 mls/hr IV ASDIRECTED [facility] Last Admin: 09/05/17 00:21 Dose: 125 mls/hr Lidocaine HCl (Xylocaine 2%) 0 mg IVPUSH ASDIRECTED PRN PRN Reason: Heart Lisinopril (Prinivil) 10 mg PO BID [facility] Metoprolol Tartrate (Lopressor) 12.5 mg PO BID [facility] Nitroglycerin (Nitro-Bid 2%) 1 gm TOP Q6H PRN PRN Reason: Chest Pain Nitroglycerin (Nitrostat) 0.4 mg SL ASDIRECTED PRN PRN Reason: Heart Non-Formulary Medication (Bariatric Advantage Advanced Multi Ea Multivitamin) 2 tab PO DAILY [facility] Omeprazole (Omeprazole) 20 mg PO DAILY [facility] Last Admin: 09/05/17 08:17 Dose: 20 mg Rosuvastatin Calcium (Crestor) 10 mg PO DAILY [facility] Last Admin: 09/05/17 08:17 Dose: 10 mg Sodium Chloride (Syrex Flush) 5 ml FLUSH Q8HR PRN PRN Reason: Keep Vein Open Assessment/Plan Comment:: HISTORY OF PRESENT ILLNESS This 67-year-old male was admitted into observation last night chest pains rule out OR and atrial fibrillation with RVR. He presented to the ED with chest pains and palpitations. He stated he was standing up drinking some juice at home when he had a similar "funny Feeling" in his chest, SOB with mild dizziness however no diaphoresis, radiating pain to his jaw or extremities or back or any GI upset. He had similar symptoms back in May 2017 subsequently transferred to a tertiary care center in [place] underwent cardiac catheterization d/t elevated cardiac enzymes and was diagnosed with nonobstructive coronary artery disease. Lance was started on Aspirin 81 mg, Crestor 10 mg, and Lopressor 12.5 mg bid. Patient's symptoms resolved and he was discharged in stable condition on 06/19/17 and was instructed to undergo cardiac rehabilitation however he has not initiated this as he feels he gets enough exercise and cardiac rehabilitation in his own words at work. Although he reported to the ED provider on admission last night that he has history of atrial fibrillation in May 2017, there is no documentation that he has ever been atrial fibrillation nor has he ever been started on anticoagulation in the past. Pertinent ED findings Atrial fibrillation RVR, converted with diltiazem Troponin negative CK-MB/CK elevated PRIMARY IMPRESSION Atrial fibrillation, paroxysmal, now in NSR, BB, [id number] 2-3, due to age and comorbidity rate control strategy likely best, discussed NOVA anticoagulation and Coumadin and/or factor Xa inhibitor with bridging. Will have pharmacy discuss options with patient regarding his pharmaceutical plan. Continue with telemetry, ambulate aggressively and south to stress AV christian response. Although patient sinus bradycardia asymptomatic--no change in BB dosing. Rule out myocardial infarction, cardiac bio-markers trending down, possibly type II non-STEMI due to RVR strain. Continue ASA and trend. telemetry status Myocardial risk, NOREEN 3, keep today observation and telemetry status CAD, non-obstructing, ASA, likely ischemic demand on admission Resuscitation status, full code SECONDARY IMPRESSION --Prediabetes, hemoglobin A1c 6.3%. Discussed metformin-- likely will administer upon discharge, not while in acute status --HTN, major contribute to risk of atrial fibrillation, well controlled on HCTZ , BB ACEI, creatinine good. Electrolytes normal --HLD, Fish oil 4 g by mouth daily, history of elevated liver enzymes, AST ALT normal, LDL is 84 with HDL at 40 - significant improvement however LDL not to goal. tolerating Crestor, no myalgias, however CK slightly elevated. Will consult pharmacy regarding patient's pattern history on statin therapy. Likely will adjust outpatient --History of Elevated liver enzymes, see above --History of NONSTEMI, May 2017. Status post cardiac catheterization nonobstructing CAD --Obesity, BMI 30, modifiable risk factor contributory Disposition, overall plan, discharge planning, decrease IV rate to help with CK , likely will start on anticoagulation, telemetry, stress in halls, likely could be discharged in the morning with close follow-up. Recommendations at follow-up, discussed metformin, adjustments of statin therapy, cardiac rehabilitation, anti-coagulation therapy monitoring education.
[2017-09-05] MEDS ORDERED: Omeprazole 20 MG Cap.CR PO SCH (09:00)
[2017-09-05] MEDS: [UNRECOGNIZED DRUG - REMARK] PO SCH (10:24)
[2017-09-05] MEDS: Hydrochlorothiazide 12.5 MG Cap PO SCH ×2 (10:37→20:27)
[2017-09-05] MEDS: Metoprolol Tartrate 25 MG Tab PO SCH ×2 (10:38→20:27)
[2017-09-05] MEDS: Lisinopril 10 MG Tab PO SCH ×2 (10:38→20:27)
[2017-09-05] MEDS: Sodium Chloride 0.9% 1,000 ML IV SCH (10:42)
[2017-09-05] MEDS: Apixaban 5 MG Tab PO SCH (20:27)
[2017-09-05] MEDS ORDERED: Acetaminophen 325 MG Tab PO PRN (22:45)
[2017-09-06] MEDS: Sodium Chloride 0.9% 1,000 ML IV SCH (02:06)
[2017-09-06] MEDS ORDERED: Omeprazole 20 MG Cap.CR PO SCH (07:30)
[2017-09-06] MEDS: Aspirin 81 MG Tab.EC PO SCH (08:48)
[2017-09-06] MEDS: Rosuvastatin 10 MG Tab PO SCH (08:48)
[2017-09-06] MEDS: Apixaban 5 MG Tab PO SCH (08:48)
[2017-09-06] MEDS: Lisinopril 10 MG Tab PO SCH (08:48)
[2017-09-06] MEDS: [UNRECOGNIZED DRUG - REMARK] PO SCH (08:48)
[2017-09-06] MEDS: Fish Oil/Omega-3 Fatty Acids 1 Gm Cap PO SCH (08:48)
[2017-09-06] MEDS: Hydrochlorothiazide 12.5 MG Cap PO SCH (08:49)
[2017-09-06 08:51] VITALS: BP 129/81
[2017-09-06] MEDS: Metoprolol Tartrate 25 MG Tab PO SCH (09:18)
--- NOTE | 2017-09-06 09:34 | PCM.DCSUM1 ---
Discharge Summary - Hospital Course Brief History: This is a 67 year old male who was admitted from the ED with atrial fibrillation with RVR and rule out ME. The patient presented to the ED with chest pain and palpitations. He was standing up drinking some juice when the incident occurred. Associated shortness of breath and mild dizziness. Denied radiating pain to the jaw, extremities, or back and no GI upset. He had similar symptoms in 2016 where he was trasnferred to [place] and underwent cardiac catheterization due to elevated cardiac enzymes. He was diagnosed with nonobstructive coronary artery disease. He did not undergo cardiac rehabilitation at that time as he felt he was active enough on his own. Patient had reported a history of afib to the ED provider, however chart review shows no history and no previous anticoagulation. - Discharge Data Discharge Date: 09/06/17 Discharge Disposition: Home, Self-Care 01 Condition: Good - Patient Summary/Data Complications: None Labs Pending at D/C: None - Patient Instructions Diet: Heart Healthy Diet, Diabetic Diet Activity: As Tolerated, Rest and Relax Today Driving: Do Not Drive Showering/Bathing: May Shower Other/Special Instructions: Notify provider of dizziness, headaches, chest pain , palpitations, shortness of breath, increased bleeding or swelling. With the start of metformin for your prediabetes, please know that it can cause some diarrhea and nausea for the first 2 weeks. This will subside. - Discharge Plan Prescriptions/Med Rec: Apixaban [Eliquis] 5 mg PO BID #60 tablet metFORMIN [Glucophage] 500 mg PO BIDMEALS #60 tab Home Medications: Home Meds Bariatric Advantage Advanced Multi Ea Multivitamin 2 tab PO DAILY 11/13/15 [ History] Fish Oil/[place]-3 Fatty Acids [Fish Oil 1,000 MG] 2 each PO BID 11/13/15 [History ] Lisinopril/Hydrochlorothiazide [Lisinopril-Hctz 10-12.5 mg Tab] 1 each PO BID [History] Omeprazole [Prilosec] 20 mg PO DAILY 11/13/15 [History] Aspirin [Adult Low Dose Aspirin EC] 81 mg PO DAILY 09/04/17 [History] Metoprolol Tartrate 12.5 mg PO BID 09/04/17 [History] Nitroglycerin 1 tab PO Q5M PRN 09/04/17 [History] Rosuvastatin Calcium 10 mg PO DAILY 09/04/17 [History] Apixaban [Eliquis] 5 mg PO BID #60 tablet 09/06/17 [Rx] metFORMIN [Glucophage] 500 mg PO BIDMEALS #60 tab 09/06/17 [Rx] Referrals: Shira Ignacio PA-C [[facility]] - 09/12/17 - Discharge Summary/Plan Comment DC Time >30 min.: No Discharge Summary/Plan Comment: Date of admission: 09/04/17 Date of discharge: 09/06/17 Admitting diagnosis: Primary: Atrial fibrillation with RVR, Rule out ME Secondary: Nonobstructing CAD, prediabetes, hypertension, hyperlipidemia, history of elevated liver enzymes, history of NSTEMI, obesity Final diagnosis: Primary: Atrial fibrillation with RVR, resolved; Type II NSTEMI due to RVR strain Secondary: Nonobstructing CAD, prediabetes, hypertension, hyperlipidemia, history of elevated liver enzymes, history of NSTEMI, obesity Procedures performed: None Hospital Course: The patient's hospital course went as expected. The patient had rhythm conversion back to NSR with the use of diltiazem. He was monitored with telemetry and remained in sinus rhythm, however at times he was bradycardic into the upper 40s. Patient was asymptomatic with these episodes. He was continued on lopressor 12.5 mg BID. Initial troponin was 0.07, however his CKMB was elevated at 4.40. This corrected down to normal at 2.10 on discharge. He had a negative chest x-ray. He denied any further episodes of chest pain during his stay. He was started on eliquis while in the hospital and continued on his baby aspirin. He was able to ambulate in halls without incident. He did receive some IV fluids to help with the correction of the CKMB. The patient is a prediabetic and had his sugars monitored while here. The range was from 95-141. He was initiated on metformin on discharge. New medications on discharge: -Eliquis 5 mg po BID -Metformin 500 mg po BID New changes to home medications on discharge: None Regular home medications on discharge: -Omeprazole 20 mg po daily -Lisinopril-HCTZ 10-12.5 mg po BID -Nitroglycerin 1 tab sublingual every 5 minutes PRN -Crestor 10 mg po daily -Aspirin 81 mg po daily -Bariatric Multivitamin 2 tab po daily -Fish Oil 2000 mg po BID -Metoprolol Tartrate 12.5 mg po BID Condition, Treatment, and Final Disposition: The patient is in stable condition at the time of discharge. He will be discharged home today with his . He will follow-up in the clinic next week with US[facility] Anna. Considerations at follow-up would include adjusting statin therapy to meet goal LDL, revisiting cardiac rehabilitation, and importance of anticoagulation. - General Info Date of Service: 09/06/17 Functional Status: Reports: Pain Controlled, Tolerating Diet, Ambulating, Urinating. Denies: New Symptoms - Review of Systems HEENT: Denies: Headaches Pulmonary: Denies: Shortness of Breath, Cough Cardiovascular: Denies: Chest Pain, Edema, Lightheadedness Neurological: Denies: Dizziness, Headache - Patient Data Vitals - Most Recent: Last Vital Signs Temp 98.3 F 09/06/17 06:03 Pulse 63 09/06/17 09:18 Resp 16 09/06/17 06:03 BP 129/81 09/06/17 09:18 Pulse Ox 92 L 09/06/17 06:03 Weight - Most Recent: 196 lb 4.8 oz I&O - Last 24 hours: Intake & Output 09/05/17 09/06/17 09/06/17 22:59 06:59 14:59 Intake Total 1149 550 Output Total 300 Balance 849 550 Lab Results - Last 24 hrs: Laboratory Results - last 24 hr 09/05/17 09/05/17 09/05/17 Range/Units 11:47 17:31 20:22 POC Glucose 117 H 95 117 H (74-106) mg/dl Creatine Kinase (26-276) U/L CK-MB (CK-2) (0.00-4.30) ng/mL 09/06/17 09/06/17 Range/Units 06:10 07:10 POC Glucose 141 H (74-106) mg/dl Creatine Kinase 193 (26-276) U/L CK-MB (CK-2) 2.10 (0.00-4.30) ng/mL Med Orders - Current: Current Medications Acetaminophen (Tylenol) 325 mg PO Q4H PRN PRN Reason: Pain Last Admin: 09/05/17 22:58 Dose: 325 mg Apixaban (Eliquis) 5 mg PO BID [facility] Last Admin: 09/06/17 08:48 Dose: 5 mg Aspirin (Halfprin) 81 mg PO DAILY [facility] Last Admin: 09/06/17 08:48 Dose: 81 mg Atropine Sulfate (Atropine 0.1 Mg/Ml) 0 mg IVPUSH ASDIRECTED PRN PRN Reason: Heart Epinephrine HCl (Epinephrine 1:10,000) 1 mg IVPUSH ASDIRECTED PRN PRN Reason: Heart Fish Oil (Fish Oil) 2 gm PO BID [facility] Last Admin: 09/06/17 08:48 Dose: 2 gm Hydrochlorothiazide (Hydrochlorothiazide) 12.5 mg PO BID [facility] Last Admin: 09/06/17 08:49 Dose: 12.5 mg Sodium Chloride (Normal Saline) 1,000 mls @ 65 mls/hr IV ASDIRECTED [facility] Last Admin: 09/06/17 02:06 Dose: 65 mls/hr Lidocaine HCl (Xylocaine 2%) 0 mg IVPUSH ASDIRECTED PRN PRN Reason: Heart Lisinopril (Prinivil) 10 mg PO BID [facility] Last Admin: 09/06/17 08:48 Dose: 10 mg Metoprolol Tartrate (Lopressor) 12.5 mg PO BID [facility] Last Admin: 09/06/17 09:18 Dose: 12.5 mg Nitroglycerin (Nitro-Bid 2%) 1 gm TOP Q6H PRN PRN Reason: Chest Pain Nitroglycerin (Nitrostat) 0.4 mg SL ASDIRECTED PRN PRN Reason: Heart Non-Form (Bariatric Advantage Advanced Multi Ea Multivitamin Gummies ) 2 tab PO DAILY [facility] Last Admin: 09/06/17 08:48 Dose: 2 tab Omeprazole (Omeprazole) 20 mg PO ACBREAKFAST [facility] Last Admin: 09/06/17 06:48 Dose: 20 mg Rosuvastatin Calcium (Crestor) 10 mg PO DAILY [facility] Last Admin: 09/06/17 08:48 Dose: 10 mg Sodium Chloride (Syrex Flush) 5 ml FLUSH Q8HR PRN PRN Reason: Keep Vein Open Discontinued Medications Aspirin (Aspirin) 324 mg PO ONETIME ONE Stop: 09/04/17 23:46 Last Admin: 09/05/17 00:20 Dose: 324 mg Diltiazem HCl (Diltiazem) 20 mg IVPUSH ONETIME ONE Stop: 09/04/17 22:18 Last Admin: 09/05/17 00:55 Dose: Not Given Sodium Chloride (Normal Saline) 1,000 mls @ 125 mls/hr IV ASDIRECTED [facility] Last Admin: 09/05/17 00:21 Dose: 125 mls/hr Omeprazole (Omeprazole) 20 mg PO DAILY [facility] Last Admin: 09/05/17 08:17 Dose: 20 mg Sodium Chloride (Syrex Flush) 5 ml FLUSH Q8HR PRN PRN Reason: Keep Vein Open Stop: 09/05/17 00:22 Last Admin: 09/05/17 00:27 Dose: 5 ml - Exam Quality Assessment: Reports: DVT Prophylaxis (Eliquis). Denies: Supplemental Oxygen General: Reports: Alert, Oriented, Cooperative, No Acute Distress Lungs: Reports: Clear to Auscultation, Normal Respiratory Effort Cardiovascular: Reports: Regular Rate (57 bpm apical), Regular Rhythm, No Murmurs Extremities: No Pedal Edema Skin: Reports: Warm, Dry Neurological: Reports: Normal Speech Psy/Mental Status: Reports: Alert, Normal Affect, Normal Mood *Q Meaningful Use (DIS) - VTE *Q VTE Criteria *Q: - Stroke *Q Stroke Criteria *Q: - AMI *Q AMI Criteria *Q:
== END 2017-09-06 10:08 | disposition home or self-care (01) ==
LOC: KA.ED 22:03 → KA.MS 23:50
PROVIDERS: ADMIT Physician Assistant Medical; ATTEND Nurse Practitioner Family
DX: I48.91 Unspecified atrial fibrillation (principal); I21.A1 Myocardial infarction type 2; I25.10 Atherosclerotic heart disease of native coronary artery without angina pectoris; I10 Essential (primary) hypertension; E78.5 Hyperlipidemia, unspecified; K21.9 Gastro-esophageal reflux disease without esophagitis; E66.9 Obesity, unspecified; R73.03 Prediabetes; Z79.84 Long term (current) use of oral hypoglycemic drugs; Z79.899 Other long term (current) drug therapy; Z79.82 Long term (current) use of aspirin
CPT/HCPCS: 36415; 71045; 80048; 80053; 82550; 82553; 82962; 83735; 84484; 85025; 85610; 85730; 93005; 96360; 96361; 99285; A9270-GY; G0378; J7030

== ENCOUNTER 2022-10-27 15:45 | Inpatient (IN) | payer MEDICARE, BC ==
[2022-10-27] MEDS ORDERED: Sodium Chloride 0.9% 1,000 ML IV ONE ×2 (16:24→17:09)
[2022-10-27 16:59] LABS: ANION GAP 19.1 mmol/L (5-15); CHLORIDE,CL 90 mmol/L (98-107); SODIUM,NA 128 mmol/L (136-145)
[2022-10-27 17:00] LABS: ESTIMATED GFR 37 mL/min (>=60)
[2022-10-27] MEDS ORDERED: 50% Dextrose in Water 50 ML Syringe IVPUSH PRN ×3 (17:09→21:47)
[2022-10-27] MEDS ORDERED: Insulin Lispro 100 Unit/ML 3 ML KwikPen SUBCUT ONE ×2 (17:09→18:55)
[2022-10-27] MEDS ORDERED: Glucagon,Human Recombinant 1 MG Vial IM PRN ×3 (17:09→21:47)
[2022-10-27 19:31] LABS: O2 DELIVERY DEVICE ROOM AIR
[2022-10-27 19:33] LABS: BASE EXCESS VENOUS -2 mmol/L ((-2)-3); BICARBONATE,VENOUS 24 mmol/L (22-29); O2 SATURATION VENOUS 44 %; PCO2 VENOUS 43 mmHG (41-51); PH,VENOUS 7.35 pH (7.32-7.43); PO2 VENOUS 26 mmHG
[2022-10-27 19:44] LABS: ANION GAP 13.8 mmol/L (5-15); CHLORIDE,CL 99 mmol/L (98-107); SODIUM,NA 134 mmol/L (136-145)
[2022-10-27 19:48] LABS: ESTIMATED GFR 43 mL/min (>=60)
[2022-10-27] MEDS: Sodium Chloride 0.9% 1,000 ML IV SCH (20:58)
[2022-10-27] MEDS ORDERED: Nitroglycerin 0.4 MG Tab.SL SL PRN (21:58)
[2022-10-27] MEDS ORDERED: Insulin Lispro 100 Unit/ML 3 ML KwikPen SUBCUT SCH (22:00)
[2022-10-27] MEDS: Insulin Lispro 100 Unit/ML 3 ML KwikPen SUBCUT SCH (22:04)
[2022-10-27] MEDS: Apixaban 5 MG Tab PO SCH (22:50)
[2022-10-28] MEDS: Insulin Lispro 100 Unit/ML 3 ML KwikPen SUBCUT SCH ×4 (00:09→18:08)
[2022-10-28] MEDS: Sodium Chloride 0.9% 1,000 ML IV SCH (03:47)
[2022-10-28] MEDS ORDERED: Insulin Lispro 100 Unit/ML 3 ML KwikPen SUBCUT SCH (06:00)
[2022-10-28] MEDS ORDERED: Acetaminophen 325 MG Tab PO PRN (07:27)
[2022-10-28] MEDS: Omeprazole 20 MG Cap.CR PO SCH (07:47)
[2022-10-28 07:53] LABS: HEMOGLOBIN A1C 10.4 % (4.3-5.7)
[2022-10-28 07:55] LABS: ANION GAP 12.3 mmol/L (5-15); CHLORIDE,CL 105 mmol/L (98-107); SODIUM,NA 140 mmol/L (136-145)
[2022-10-28 07:59] LABS: ESTIMATED GFR 51 mL/min (>=60)
[2022-10-28] MEDS: Rosuvastatin 10 MG Tab PO SCH (08:22)
[2022-10-28] MEDS: Apixaban 5 MG Tab PO SCH ×2 (08:23→21:45)
[2022-10-28] MEDS: Lisinopril 10 MG Tab PO SCH (08:23)
[2022-10-28] MEDS: Metoprolol Tartrate 25 MG Tab PO SCH (08:24)
[2022-10-28] MEDS ORDERED: Apixaban 5 MG Tab PO SCH (09:00)
[2022-10-28] MEDS ORDERED: Insulin Glargine,Hum.Rec.Anlog 100 UNIT/ML 3 ML Pen SUBCUT SCH ×2 (21:00→22:00)
[2022-10-28] MEDS ORDERED: Insulin Lispro 100 Unit/ML 3 ML KwikPen SUBCUT ONE (22:01)
[2022-10-29] MEDS: Omeprazole 20 MG Cap.CR PO SCH ×2 (06:06→06:29)
[2022-10-29] MEDS: Rosuvastatin 10 MG Tab PO SCH (08:15)
[2022-10-29] MEDS: Insulin Lispro 100 Unit/ML 3 ML KwikPen SUBCUT SCH ×2 (08:17→12:02)
[2022-10-29] MEDS: Apixaban 5 MG Tab PO SCH (08:17)
[2022-10-29] MEDS: Metoprolol Tartrate 25 MG Tab PO SCH (08:18)
[2022-10-29] MEDS: Lisinopril 10 MG Tab PO SCH (08:18)
[2022-10-29 11:47] VITALS: BP 128/79; PULSE 61
[2022-10-29] MEDS ORDERED: Insulin Glargine,Hum.Rec.Anlog 100 UNIT/ML 3 ML Pen SUBCUT ONE (11:57)
== END 2022-10-29 12:59 | disposition home or self-care (01) | DRG 639 ==
LOC: KA.ED 15:45 → KA.MS 20:25 → OBSVTOIN 22:43
PROVIDERS: ADMIT Physician Assistant; ATTEND Family Medicine
DX: E11.00 Type 2 diabetes mellitus with hyperosmolarity without nonketotic hyperglycemic-hyperosmolar coma (NKHHC) (principal); I25.10 Atherosclerotic heart disease of native coronary artery without angina pectoris; I48.91 Unspecified atrial fibrillation; H91.90 Unspecified hearing loss, unspecified ear; Z66 Do not resuscitate; E78.00 Pure hypercholesterolemia, unspecified; K59.09 Other constipation; K21.9 Gastro-esophageal reflux disease without esophagitis; M19.90 Unspecified osteoarthritis, unspecified site; E03.9 Hypothyroidism, unspecified; E11.22 Type 2 diabetes mellitus with diabetic chronic kidney disease; N18.32 Chronic kidney disease, stage 3b; E86.0 Dehydration; I12.9 Hypertensive chronic kidney disease with stage 1 through stage 4 chronic kidney disease, or unspecified chronic kidney disease; Z87.442 Personal history of urinary calculi; Z79.899 Other long term (current) drug therapy; Z79.4 Long term (current) use of insulin; I25.2 Old myocardial infarction; Z79.01 Long term (current) use of anticoagulants; Z85.53 Personal history of malignant neoplasm of renal pelvis; Z98.890 Other specified postprocedural states; Z90.5 Acquired absence of kidney; Z68.30 Body mass index [BMI] 30.0-30.9, adult
CPT/HCPCS: 36415; 71045; 80048; 80053; 81001; 82803; 82947; 83036; 83880; 84484; 85025; 86140; 93010; 99284; A9270-GY; J1815-GY; J7030